=== PATIENT | female | born 1965 | race Caucasian/White ===

== ENCOUNTER 2020-04-18 11:51 | Inpatient (IN) | payer MEDICARE, MEDICAID ==
[~2020-04-18] VITALS: Ht 170.2 cm; Wt 71.8 kg
--- NOTE | 2020-04-18 12:02 | NUR ---
BELONGINGS SECURED IN LOCKER. ALL EQUIPMENT BEHIND PULL DOWN DOORS. IN DIRECT VIEW OF SITTER.
[2020-04-18 12:36] LABS: BASOPHILS % (AUTO) 0 % (0-1); EOSINOPHILS % (AUTO) 0 % (1-7); LYMPHOCYTES # (AUTO) 0.36 x10^3/uL (1-3.4); LYMPHOCYTES % (AUTO) 3 % (22-44); MD NO; MEAN CORPUSCULAR HEMOGLOBIN 32.8 pg (27.0-34.8); MEAN CORPUSCULAR HGB CONC 33.3 g/dL (32.4-35.8); MEAN PLATELET VOLUME 7.6 fL (7.4-10.4); MONOCYTES # (AUTO) 0.95 x10^3/uL (0.2-0.8); MONOCYTES % (AUTO) 7 % (2-9); NEUTROPHILS # (AUTO) 11.89 x10^3/uL (1.8-6.8); NEUTROPHILS % (AUTO) 90 % (42-75); PLATELET COUNT 328 x10^3/uL (130-400); RED BLOOD COUNT 4.57 x10^6/uL (3.82-5.3); RED CELL DISTRIBUTION WIDTH 13.9 % (9.6-15.2)
[2020-04-18 12:48] LABS: ALANINE AMINOTRANSFERASE 53 U/L (12-78); ALBUMIN 3.2 g/dL (3.4-5.0); ANION GAP 9 mmol/L (5-15); CALCIUM 8.2 mg/dL (8.5-10.1); CHLORIDE 107 mmol/L (98-107); CREATININE 1.05 mg/dL (0.55-1.02)
[2020-04-18 12:58] LABS: ALKALINE PHOSPHATASE 46 U/L (45-117); BILIRUBIN,TOTAL 0.7 mg/dL (0.2-1.0); TOTAL PROTEIN 7.1 g/dL (6.4-8.2)
--- NOTE | 2020-04-18 13:00 | NUR ---
RECEIVED REPORT FROM NICHOLAS, PT TRANSFERRED TO [facility] VIA STEADY AMBULATION, NAD, COMFORT MEASURES PROVIDED, PT IN SAFE NENVIRONMENT, SITTER IN VIEW, BELONGINGS IN BAG X1 MOVED TO NEW BIN IN PT LOCKER.
[2020-04-18 13:18] LABS: FREE T4 (FREE THYROXINE) 0.77 ng/dL (0.76-1.46)
--- NOTE | 2020-04-18 13:53 | NUR ---
BREAK RN: PT TO CT.
--- NOTE | 2020-04-18 15:02 | NUR ---
PT LAYING ON HOSPITAL WITH EYES CLOSED, NAD WITH EQUAL CHEST RISE/FALL, NO NEEDS AT THIS TIME, PT IN SAFE ENVIRONMENT, SITTER IN VIEW.
--- NOTE | 2020-04-18 16:18 | NUR ---
PT UPRIGHT ON HOSPITAL BED, NAD, COMFORT MEASURES PROVIDED, PT IN SAFE ENVIRONMENT, SITTER IN VIEW.
--- NOTE | 2020-04-18 16:33 | NUR ---
DAUGHTER KATY [phone]
--- NOTE | 2020-04-18 16:45 | NUR ---
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 DAUGHTER BELIEVES PT HAS TAKEN MORE THAN SHE SHOULD. DAUGHTER ALSO REPORTS THAT PT HAD RECENTLY ASKED HER PRESCRIBING MD FOR EXTRA STEROIDS TO HAVE ON-HAND IN THE EVENT SHE CONTRACTS COVID.
--- NOTE | 2020-04-18 17:03 | NUR ---
PT SITTING ON EOB, DENIES NEED TO VOID & REFUSED ATTEMPT & STRAIGHT CATH, PT MAKING STATEMENTS SUCH "I'M WAITING FOR MY DAUGHTER TO PICK ME UP BECAUSE SHE HAS THE DOGS", THEN IMMEDIATELY STATES "MY IS PICKING ME UP BECAUSE MY DAUGHTER IS DRAGGING A DOG AROUND, I NEED MY CLOTHES", PT ANXIOUS BUT NADN, DENIES ANY NEEDS OTHER THAN NEEDING TO LEAVE BUT DOES NOT COMPREHEND BEING ON A LEGAL NOR ABLE TO FOLLOW COMMANDS, WILL CONTINUE TO ENCOURAGE PO INTAKE/FLUIDS, PT IN SAFE ENVIRONMENT, SITTER IN VIEW.
[2020-04-18] MEDS ORDERED: SODIUM CHLORIDE FLUSH 10ML SYR IVF PRN (17:30)
--- NOTE | 2020-04-18 17:38 | NUR ---
OK TO HOLD OFF ON PIV AT THIS TIME PER DR SANDHU, [facility] AWARE.
--- NOTE | 2020-04-18 18:05 | NUR ---
PT ATTEMPTED TO LEAVE ED TWICE (1ST TIME REQ MOD AMT REDIRECTION AT ROOM DOOR, 2ND TIME REQ SECURITY BEING CALLED PT TRIED LEAVING OUT OF REAR ED DOOR), PT RE-EDUCATED ON L2K & POSSIBLE RESTRAINT USE, PT NOW SITTING AT EOB TALKING TO [facility]/RESIDENT, DINNER TRAY GIVEN, NO OTHER NEEDS AT THIS TIME, PT REMAINS IN SAFE ENVIRONMENT, SITTER IN VIEW.
[2020-04-18] MEDS: SODIUM CHLORIDE 0.9% 1,000 ML IV SCH (18:36)
--- NOTE | 2020-04-18 18:51 | NUR ---
REPORT GIVEN TO JOHNATHAN
[2020-04-18] MEDS ORDERED: DOCUSATE 100 MG CAPSULE PO PRN (19:00)
[2020-04-18] MEDS ORDERED: ACETAMINOPHEN 325 MG TABLET PO PRN (19:00)
[2020-04-18] MEDS ORDERED: BISACODYL 10 MG SUPP PR PRN (19:00)
[2020-04-18] MEDS ORDERED: POLYETHYLENE GLYCOL 17 GM PACKET PO PRN (19:00)
[2020-04-18] MEDS ORDERED: ONDANSETRON ODT 4 MG PO PRN (19:00)
[2020-04-18] MEDS ORDERED: hydrALAzine 20 MG/ML, 1ML IVPush PRN (19:00)
--- NOTE | 2020-04-18 19:03 | NUR ---
REPORT FROM LAURIE DEAN. PT GIVEN UA CUP FOR SAMPLE. PT AMBULATED TO BATHROOM BUT REFUSED TO GIVE SAMPLE. PT EDUCATED ON NEED OF URINE SAMPLE TO RULE OUT UTI. PT WENT BACK TO ROOM. SITTER IN VIEW OF PT.
[2020-04-18] MEDS ORDERED: HYDR100V3 IM (19:05)
[2020-04-18] MEDS ORDERED: LEVO50TA5 PO (19:05)
[2020-04-18] MEDS ORDERED: DEXA1.5T28 PO (19:05)
[2020-04-18] MEDS ORDERED: ZOLP6.255 PO (19:05)
[2020-04-18] MEDS ORDERED: PRED1TAB19 PO (19:05)
[2020-04-18] MEDS ORDERED: CYAN10002 IM (19:05)
[2020-04-18] MEDS ORDERED: PROG100C10 PO (19:05)
--- NOTE | 2020-04-18 19:05 | NUR ---
HOME MEDS OBTAINED FROM PHARMACY, LEFT MESSAGE ON [facility] VM TO NOTIFY INFO ENTERED INTO PT CHART.
[2020-04-18] MEDS ORDERED: CYANOCOBALAMIN 1,000 MCG/ML, 1ML IM SCH (20:00)
--- NOTE | 2020-04-18 20:04 | NUR ---
PTS DAUGHTER CAME TO CHECK ON HER MOTHER. PT WENT TO BATHROOM WHILE SHE WAS HERE AND PT URINATED IN CUP AND THEN POURED IT IN THE TOILET. PT BACK IN BED AND HAS NO NEEDS AT THIS TIME. SITTER IN VIEW OF PT.
[2020-04-18 21:15] VITALS: BP 142/87
[2020-04-18] MEDS ORDERED: VIT B-12 MC SCH (21:30)
[2020-04-18] MEDS ORDERED: CYANOCOBALAMIN 1,000 MCG/ML, 1ML IM ONE (22:00)
[2020-04-19] MEDS: SODIUM CHLORIDE 0.9% 1,000 ML IV SCH (03:34)
[2020-04-19 04:50] LABS: AMPHETAMINE SCREEN, URINE Negative (Negative); BARBITURATE SCREEN, URINE Negative (Negative); BENZODIAZEPINE SCREEN, URINE Negative (Negative); CANNABINOID SCREEN, URINE Negative (Negative); COCAINE SCREEN, URINE Negative (Negative); METHADONE SCREEN, URINE Negative (Negative); OPIATE SCREEN, URINE Negative (Negative)
[2020-04-19 08:15] VITALS: BP 148/82
[2020-04-19] MEDS ORDERED: LEVOTHYROXINE 50 MCG TABLET PO SCH (09:00)
[2020-04-19] MEDS: LEVOTHYROXINE 25 MCG TABLET PO SCH (10:06)
[2020-04-19] MEDS: PROGESTERONE 100 MG CAPSULE PO SCH (10:07)
[2020-04-19 11:45] LABS: BASOPHILS # (AUTO) 0.02 x10^3/uL (0-0.1); BASOPHILS % (AUTO) 0 % (0-1); EOSINOPHILS # (AUTO) 0.02 x10^3/uL (0-0.4); EOSINOPHILS % (AUTO) 0 % (1-7); LYMPHOCYTES # (AUTO) 1.83 x10^3/uL (1-3.4); LYMPHOCYTES % (AUTO) 19 % (22-44); MD NO; MEAN CORPUSCULAR HEMOGLOBIN 32.1 pg (27.0-34.8); MEAN CORPUSCULAR HGB CONC 32.3 g/dL (32.4-35.8); MEAN PLATELET VOLUME 7.2 fL (7.4-10.4); MONOCYTES # (AUTO) 0.62 x10^3/uL (0.2-0.8); MONOCYTES % (AUTO) 6 % (2-9); NEUTROPHILS % (AUTO) 75 % (42-75); PLATELET COUNT 287 x10^3/uL (130-400); RED BLOOD COUNT 4.53 x10^6/uL (3.82-5.3); RED CELL DISTRIBUTION WIDTH 14.3 % (9.6-15.2)
[2020-04-19 11:51] LABS: ANION GAP 5 mmol/L (5-15); CALCIUM 8.5 mg/dL (8.5-10.1); CHLORIDE 105 mmol/L (98-107)
[2020-04-19 15:59] VITALS: BP 144/86
[2020-04-19 16:30] LABS: MICROSCOPIC NOT IND
[2020-04-19 18:38] VITALS: BP 136/78
[2020-04-19] MEDS: POTASSIUM CHLORIDE 20 MEQ TAB.ER.PRT PO SCH (20:04)
[2020-04-20 00:24] VITALS: BP 122/80
[2020-04-20 07:01] VITALS: BP 122/75
[2020-04-20] MEDS: LEVOTHYROXINE 25 MCG TABLET PO SCH (09:05)
[2020-04-20] MEDS: POTASSIUM CHLORIDE 20 MEQ TAB.ER.PRT PO SCH (09:05)
[2020-04-20] MEDS: PROGESTERONE 100 MG CAPSULE PO SCH (09:05)
[2020-04-20] MEDS ORDERED: PRED5TAB PO (12:54)
[2020-04-20] MEDS ORDERED: LEVO25TA4 PO (12:54)
[2020-04-20 12:59] VITALS: BP 130/73
== END 2020-04-20 15:25 | disposition home or self-care (01) | DRG 918 ==
LOC: ED 17:21 → EDIP 17:27 → 3N 21:21 → DCLOUNGE 04-20 15:17
PROVIDERS: ADMIT Family Medicine; ATTEND Hospitalist
DX: T38.0X1A Poisoning by glucocorticoids and synthetic analogues, accidental (unintentional), initial encounter (principal); R65.10 Systemic inflammatory response syndrome (SIRS) of non-infectious origin without acute organ dysfunction; E27.1 Primary adrenocortical insufficiency; E03.9 Hypothyroidism, unspecified; E78.5 Hyperlipidemia, unspecified; F09 Unspecified mental disorder due to known physiological condition; E86.0 Dehydration; F22 Delusional disorders; Z90.710 Acquired absence of both cervix and uterus; Y92.009 Unspecified place in unspecified non-institutional (private) residence as the place of occurrence of the external cause
CPT/HCPCS: 36415; 70450; 71045; 80048; 80053; 80307; 81003; 82140; 82533; 83735; 84244; 84439; 84443; 84481; 85025; 93005; G0378; J3420; J7512